=== PATIENT | female | born 1940 | race Caucasian/White ===

== ENCOUNTER 2017-08-24 22:55 | Emergency (ER) | payer OTHER ==
[~2017-08-24] VITALS: Ht 162.6 cm; Wt 82.7 kg
[~2017-08-24 22:55] MED LIST: DICLOFENAC POTA50 MG PO; DITROPAN5 MG PO; LIDODERM 5% P1 PATCH TD; LISINOPRIL20 MG PO; NASONEX17 GM BOTH NARES; OMEPRAZOLE20 MG PO; OMEPRAZOLE40 M1 PO; OXYBUTYNIN CHLOR5 MG PO; PANTOPRAZOLE SO40 MG PO; SERTRALINE HCL100 MG PO; SIMVASTATIN20 MG PO; SIMVASTATIN40 MG PO; VENTOLIN HFA18 GM IH
[2017-08-25 00:11] LABS: ADD MIUA? YES; BILIRUBIN NEGATIVE; BLOOD SMALL; COLOR AMBER ((YELLOW)); GLUCOSE (STRIP) NEGATIVE; KETONES NEGATIVE; LEUKOCYTES LARGE; NITRITE NEGATIVE; PROTEIN (STRIP) 30; SPECIFIC GRAVITY 1.024 (1.000-1.030)
[2017-08-25 00:32] LABS: BACTERIA 3+ /HPF; CASTS NONE SEEN /LPF; CRYSTALS NONE SEEN; EPITHELIAL CELLS 1+ /HPF; MUCUS 1+ /LPF; RED BLOOD CELLS 0-5 /HPF (0-5); UCUL ADDED? YES; WHITE BLOOD CELLS 40-50 /HPF (0-5)
[2017-08-25 01:44] LABS: MCH 29.1 PG (29.0-34.0); MCHC 32.4 G/DL (30.0-36.0); MCV 89.8 FL (83-99); MEAN PLAT.VOLUME 10.4 uM^3 (9.5-12.4); PLATELET COUNT 189 K/uL (156-360); RBC DIS.WIDTH-CV 13.2 % (11.8-14.6); RBC DIS.WIDTH-SD 43.5 % (39-53); RED BLOOD COUNT 4.23 M/uL (3.80-5.20); WHITE BLOOD COUNT 6.1 K/uL (4.1-10.2)
[2017-08-25 01:52] LABS: CHLORIDE 108 mEq/L (99-109); POTASSIUM 3.7 mEq/L (3.7-5.4); SODIUM 140 mEq/L (136-147)
[2017-08-25 01:54] LABS: GLUCOSE 109 mg/dL (70-99)
[2017-08-25 01:55] LABS: ANION GAP 7 MEQ/L (2-14)
[2017-08-25 01:57] LABS: GFR ESTIMATE (CALCULATED) > 59 mL/min/
[2017-08-25 01:58] LABS: UREA NITROGEN (BUN) 14 mg/dL (9-23)
[2017-08-25] MEDS ORDERED: LEVAQUIN750 MG PO (02:29)
[2017-08-25 03:44] VITALS: BP 153/88
== END 2017-08-25 03:47 | disposition home or self-care (01) ==
LOC: EME 22:55
PROVIDERS: Emergency Medicine
DX: N39.0 Urinary tract infection, site not specified (principal); R42 Dizziness and giddiness; F03.90 Unspecified dementia, unspecified severity, without behavioral disturbance, psychotic disturbance, mood disturbance, and anxiety; I10 Essential (primary) hypertension; J45.909 Unspecified asthma, uncomplicated; Z87.891 Personal history of nicotine dependence
CPT/HCPCS: 80048; 81003; 85027; 87086; 99281; 99284; J1956; J7030

== ENCOUNTER 2018-03-25 11:14 | Observation (INO) | payer OTHER ==
[~2018-03-25] VITALS: Ht 157.5 cm; Wt 82.1 kg
[~2018-03-25 11:14] MED LIST changes: +LEVAQUIN750 MG PO
[2018-03-25 12:05] LABS: HEMATOCRIT 38.6 % (36.0-46.0); HEMOGLOBIN 12.8 G/DL (11.9-15.5); MCH 28.9 PG (29.0-34.0); MCHC 33.2 G/DL (30.0-36.0); MCV 87.1 FL (83-99); PLATELET COUNT 212 K/uL (156-360); RBC DIS.WIDTH-CV 13.3 % (11.8-14.6); RBC DIS.WIDTH-SD 42.9 % (39-53); RED BLOOD COUNT 4.43 M/uL (3.80-5.20); WHITE BLOOD COUNT 4.7 K/uL (4.1-10.2)
[2018-03-25 12:07] LABS: CARBON DIOXIDE (BICARBONATE) 27.7 MEQ/L (20-31)
[2018-03-25 12:13] LABS: CHLORIDE 104 mEq/L (99-109); POTASSIUM 4.4 mEq/L (3.7-5.4); SODIUM 138 mEq/L (136-147)
[2018-03-25 12:15] LABS: GLUCOSE 96 mg/dL (70-99)
[2018-03-25 12:19] LABS: CREATININE 0.7 mg/dL (0.6-1.3); GFR ESTIMATE (CALCULATED) > 59 mL/min/
[2018-03-25 12:20] LABS: UREA NITROGEN (BUN) 17 mg/dL (9-23)
[2018-03-25 12:26] LABS: TROP-I INTERPRETATION NEGATIVE; TROPONIN-I < 0.01 ng/mL (0.0-0.30)
[2018-03-25] MEDS ORDERED: DONEPEZIL HCL10 MG PO (13:56)
[2018-03-25] MEDS ORDERED: VITAMIN B COMP1 EACH PO (13:56)
[2018-03-25 18:20] VITALS: BP 141/67
[2018-03-25 18:55] LABS: TROP-I INTERPRETATION NEGATIVE; TROPONIN-I 0.01 ng/mL (0.0-0.30)
[2018-03-25 19:46] VITALS: BP 119/67
[2018-03-26 00:08] VITALS: BP 105/56; BP 110/78
[2018-03-26 01:10] LABS: TROP-I INTERPRETATION NEGATIVE; TROPONIN-I 0.01 ng/mL (0.0-0.30)
[2018-03-26 03:49] VITALS: BP 136/76
[2018-03-26 12:00] VITALS: BP 123/56
[2018-03-26 12:36] LABS: HEMATOCRIT 39.6 % (36.0-46.0); HEMOGLOBIN 12.7 G/DL (11.9-15.5); MCH 27.9 PG (29.0-34.0); MCHC 32.1 G/DL (30.0-36.0); PLATELET COUNT 209 K/uL (156-360); RBC DIS.WIDTH-CV 13.2 % (11.8-14.6); RBC DIS.WIDTH-SD 41.9 % (39-53); RED BLOOD COUNT 4.55 M/uL (3.80-5.20); WHITE BLOOD COUNT 5.6 K/uL (4.1-10.2)
[2018-03-26 13:06] LABS: ALBUMIN 3.8 G/DL (3.2-4.8); ALKALINE PHOSPHATASE 65 IU/L (3-129); ALT (GPT) 15 IU/L (3-49); AST (GOT) 20 IU/L (2-34); CHLORIDE 108 MEQ/L (99-109); CREATININE 0.6 MG/DL (0.6-1.3); GFR ESTIMATE (CALCULATED) > 59 mL/min/; GLUCOSE 98 mg/dL (70-99); POTASSIUM 3.9 MEQ/L (3.7-5.4); SODIUM 142 MEQ/L (136-147); TOTAL BILIRUBIN 0.5 MG/DL (0.0-1.0); TOTAL PROTEIN 6.5 G/DL (6.4-8.3); UREA NITROGEN (BUN) 13 mg/dL (9-23)
[2018-03-26 13:22] LABS: LIPASE 59 U/L (1.0-51.0)
[2018-03-26 14:08] LABS: THYROTROPIN (TSH) 1.7 MIU/L (0.4-5.5)
[2018-03-26 16:46] VITALS: BP 151/78
[2018-03-26 19:32] VITALS: BP 133/63
[2018-03-26 23:21] LABS: C DIFF TOXIN NEGATIVE (NEGATIVE)
[2018-03-26 23:56] VITALS: BP 141/82
[2018-03-27 04:15] VITALS: BP 112/63
[2018-03-27] MEDS ORDERED: ELIQUIS5 MG PO ×2 (08:16→08:18)
[2018-03-27 08:22] VITALS: BP 124/82
[2018-03-27 08:49] LABS: THYROTROPIN (TSH) 1.4 MIU/L (0.4-5.5)
[2018-03-27 11:10] VITALS: BP 138/72
[2018-03-27] MEDS ORDERED: CARDIZEM CD180 MG PO (11:32)
[2018-03-27] MEDS ORDERED: LIDOCARE1 EACH TP (11:34)
[2018-03-27] MEDS ORDERED: FLONASE16 G1 BOTH NARES (11:54)
== END 2018-03-27 15:04 | disposition home or self-care (01) ==
LOC: EME 11:14 → EDOF 14:01 → 4SOUTH 14:01 → EDOF 14:01 → ENRESERV 14:05 → 4SOUTH 17:13
PROVIDERS: Emergency Medicine; Hospitalist; Internal Medicine; Internal Medicine Gastroenterology; Physician Assistant Medical
DX: A08.4 Viral intestinal infection, unspecified (principal); I48.91 Unspecified atrial fibrillation; K21.9 Gastro-esophageal reflux disease without esophagitis; E78.5 Hyperlipidemia, unspecified; M17.0 Bilateral primary osteoarthritis of knee; F03.90 Unspecified dementia, unspecified severity, without behavioral disturbance, psychotic disturbance, mood disturbance, and anxiety; J45.909 Unspecified asthma, uncomplicated; I10 Essential (primary) hypertension; Z90.49 Acquired absence of other specified parts of digestive tract; Z88.0 Allergy status to penicillin; Z88.5 Allergy status to narcotic agent
CPT/HCPCS: 71046; 74177; 80048; 80053; 82803; 83605; 83690; 83880; 84439; 84443; 84484; 85027; 87040; 87493; 87506; 93005; 93306; 94640; 99202; 99281; 99284; G0378; J1650; J7030; J7040